=== PATIENT | male | born 1965 | race Caucasian/White ===

== ENCOUNTER → 2017-12-27 16:06 | Outpatient (CLI) | payer BC | END | disposition home or self-care (01) | LOC: D.MRI 12-06 16:30 | DX: M54.16 Radiculopathy, lumbar region (principal) ==

== ENCOUNTER 2019-09-11 07:30 | Day surgery (SDC) | payer BC, OTHER ==
--- NOTE | 2019-09-09 16:28 | NUR ---
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 JUST DRANK ONE BEFORE COMING TO [facility]. PRESENTED VERY HYPER. STATES HE HAS NO BP PROBS
[~2019-09-11] VITALS: Ht 177.8 cm; Wt 80.7 kg
[~2019-09-11 07:30] MED LIST: EFFEXOR XR37.5 MG PO; IBUPROFEN800 MG PO; NEXIUM20 MG PO
[2019-09-11 08:14] VITALS: BP 114/74; Ht 177.8 cm; Wt 80.7 kg
--- NOTE | 2019-09-11 08:59 | NUR ---
0850-MONITORS ESTABLISHED, BLOCK PER ANESTHESIA. 0900-BLOCK COMPLETED, O2 ON AT 2L PER NC. O2 SAT 97%, PULSE 58. AT BEDSIDE.
--- NOTE | 2019-09-11 20:47 | NUR ---
1400 IV D/C'D WITH CANNULA INTACT. DISCHARGE INSTRUCTIONS GIVEN. BOTH AND PATIENT VERBALIZED AN UNDERSTANDING OF DIFFERENT CARE FOR SHOULDER AND HAND.
--- NOTE | 2019-09-15 06:42 | OP ---
PATIENT NAME: FELISHA DONALDSON MEDICAL RECORD: [id number] :61 LOCATION:[facility] ADMISSION DATE: SURGEON: STANLEY GRANADO DO DATE OF OPERATION: 09/11/2019 PROCEDURE PERFORMED: Right shoulder arthroscopy with rotator cuff repair, subacromial decompression, distal clavicle excision and a right thumb ulnar collateral ligament repair. PREOPERATIVE DIAGNOSES: Right shoulder rotator cuff tear, subacromial impingement, acromioclavicular joint arthritis and right thumb ulnar collateral ligament tear. POSTOPERATIVE DIAGNOSES: Right shoulder rotator cuff tear, subacromial impingement, acromioclavicular joint arthritis and right thumb ulnar collateral ligament tear. INDICATIONS: Mr. Donaldson is a 53-year-old male who has had quite a hard time with his right thumb. He has some CMC joint arthritis as well, but some instability of his thumb following an accident and he was tired of the instability. I informed him I could fix that. He also had a rotator cuff tear that he had repaired quite a few years ago, but had re-torn. I informed him of the risk of that including retear, continued pain, frozen shoulder, damage to nerves and vessels in the area, same with the thumb that he would lose motion at the MCP joint and have the loss of sensation along the ulnar aspect of the thumb. He was aware of that as well as the risk of infection and he signed the consent. SURGEON: Stanley Granado DO DESCRIPTION OF PROCEDURE: The patient was given a block by anesthesia in the preoperative area. He was taken to the operative suite, laid in the left lateral decubitus position and sedated and LMA was placed. He was given 900 mg of clindamycin. The right shoulder was then prepped and draped in sterile fashion. Timeout was performed. Everyone was in agreeance with the correct side, site, patient, and procedure. I then began by inflating the posterior aspect of the shoulder through an 18-gauge spinal needle into the joint with 60 mL of normal saline. I then removed that and made the portal site with the 11-blade scalpel and trocar, then entered the joint. Anterior portal was established with an 18-gauge spinal needle and 11-blade scalpel. Trocar was entered into the joint as well and then, looked around his biceps tendon, it had already been torn. There was quite a bit of fraying noted in the rotator cuff and a large tear seen along the supraspinatus and infraspinatus. 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 I then did a subacromial decompression, distal clavicle excision and acromioplasty. I then decorticated the humerus for the footprint of the rotator cuff tendon. I then opened the shoulder laterally and put in 2 anchors medially through the tendon and brought them over to 2 lateral row anchors. I then put the Prevena patch on top and then stapled into place. This was then closed by Ayaz Pleitez, certified surgical certified first assistant with 2-0 Vicryl in inverted interrupted fashion, 4-0 Monocryl ran on the skin and then closed the portal sites with 4-0 Monocryl in an inverted interrupted fashion. Dermabond glue was then placed on and Telfa and Tegaderm, and then went to address the thumb. The drapes were taken down and he was reprepped for right hand. A tourniquet was placed and he was prepped OPERATIVE REPORT [id number] FELISHA DONALDSON and draped on the right hand. The right upper extremity was then exsanguinated with an Esmarch and tourniquet was inflated to 250 mmHg and it was up for 12 minutes. I then made an incision along the ulnar side of the thumb. I made careful dissection down to the adductor aponeurosis and incised that and made careful dissected down to the ulnar collateral ligament, it was quite loose, luckily had not retracted for. I then used the 1.0 JuggerLoc with 2-0 suture and did a horizontal mattress and Jignesh Chas stitch and tied that down and made it quite taut. I then repaired the adductor aponeurosis with the leftover 2-0 suture in a [id number] and single stitch. The tourniquet was then let down. Any bleeding was coagulated with a pickup and Bovie and the site was closed by Ayaz Pleitez, certified district administrative assistant with 4-0 Monocryl in inverted interrupted fashion. Steri-Strips, Adaptic, 4 x 4's, cast padding and then a thumb spica splint was then placed on the patient, secured with an Aidan wrap. He was then awakened and taken to recovery in stable condition. BLOOD LOSS: Minimal. COMPLICATIONS: None. TRANSINT:[id number] Voice Confirmation ID: [id number] DOCUMENT ID: [id number] STANLEY GRANADO DO at 0642 CC: [id number] DICTATION DATE: 09/11/19 140 WEALTH MANAGEMENT ADVISOR: 09/11/19 1616 [facility] 09/11/19 [id number] [place] [address]
== END 2019-09-11 14:00 | disposition home or self-care (01) ==
LOC: D.OPS 07:30
PROVIDERS: ATTEND Orthopaedic Surgery
DX: M75.101 Unspecified rotator cuff tear or rupture of right shoulder, not specified as traumatic (principal); M25.811 Other specified joint disorders, right shoulder; S53.31XA Traumatic rupture of right ulnar collateral ligament, initial encounter; X58.XXXA Exposure to other specified factors, initial encounter; M19.011 Primary osteoarthritis, right shoulder